=== PATIENT | female | born 1960 | race Caucasian/White ===

== ENCOUNTER 2021-05-31 15:39 | Outpatient (REF) | payer BC, SELFPAY ==
[2021-06-01 19:57] LABS: Immunoglobulin A 137 mg/dL (47-310)
[2021-06-03 07:01] LABS: Transglutaminase Ab IgG <1.0 U/mL; Transglutaminase IgA <1.0 U/mL
[2021-06-03 14:27] LABS: Gliadin Deamidated IgA Ab <1.0 U/mL; Gliadin Deamidated IgG Ab <1.0 U/mL
[2021-06-04 14:46] LABS: Endomysial IgA Antibody Negative (Negative)
== END 2021-05-31 15:40 | disposition home or self-care (01) ==
LOC: HO.LAB 15:39
PROVIDERS: Absent Provider Family Medicine; PCP Family Medicine; Visit Provider Internal Medicine
DX: R14.3 Flatulence (principal)
CPT/HCPCS: 36415; 82784; 86231; 86258; 86364

== ENCOUNTER 2021-07-10 08:44 | Day surgery (SDC) | payer BC, SELFPAY ==
[2021-07-05 09:31] VITALS: BMI 24.7
[2021-07-10 10:06] VITALS: BMI 23.8
[2021-07-10 10:17] VITALS: BP 146/81; PULSE 66; RESP 16; TEMP 36.3; O2SAT 99
[2021-07-10] MEDS: Lactated Ringers 1,000 ML 50 ML IVCONT (10:22)
--- NOTE | 2021-07-10 10:22 | HO.ANESPROP2 ---
HPI - Anesthesia Eval Consult details Narrative: Screening Colonoscopy REPLACED BY [facility] Past Medical History Medical History (Updated 07/05/21 @ 09:12 by Luz Maria Marte, RN) History of basal cell cancer History of hypothyroidism HX: breast cancer Family History Family history of problems with anesthesia: No Surgical History Surgical History (Updated 07/05/21 @ 09:12 by Luz Maria Marte, ALEXANDRA) Hx of bilateral oophorectomy Hx of colonoscopy Status post Mohs surgery for basal cell carcinoma History of Problems with Anesthesia: No Social History Social History Patient Tobacco Use Status: Never used Tobacco Use of substances other than those prescribed or required for medical reasons: No Are you DNR?: No Advance Directives: No Advance Directives Information Provided: Yes Meds Allergies Allergy/AdvReac Type Severity Reaction Status Date / Time diphenhydramine Allergy Unknown Verified 07/10/21 09:16 [From Benadryl] sulfamethoxazole Allergy Unknown Verified 07/10/21 09:16 [From Bactrim] trimethoprim [From Bactrim] Allergy Unknown Verified 07/10/21 09:16 Active Medications: Current Medications Lactated Ringer's (Lr) 1,000 mls @ 50 mls/hr IVCONT .Q20H JUAN M Sodium Biphosphate/Sodium Phosphate (Sodium Phosphate,[place]-Dibasic 133 Ml Enema) 133 ml MA ONCE PRN PRN Reason: Poor Bowel Movement Home Medications Medication Instructions Recorded Confirmed Last Taken Type dupilumab 300 mg/2 mL subcutaneous mg SUBCUT 07/05/21 Unknown History syringe (Dupixent) estradiol (Estring) 1 ring VAGINAL [id number] 07/05/21 07/05/21 Unknown History levothyroxine 75 mcg tablet 1 tab PO DAILY 07/05/21 07/05/21 Unknown History linezolid 600 mg tablet 1 tab PO DAILY 07/05/21 07/05/21 Unknown History liothyronine 5 mcg tablet 1 tab PO DAILY 07/05/21 07/05/21 Unknown History Exam Exam Date and Time: July 10, 2021 1022 Height,Weight and Vital Signs: Height 5 ft 2 in Weight 58.967 kg Last Vital Signs Temp 97.3 F 07/10/21 10:17 Pulse 66 07/10/21 10:17 Resp 16 07/10/21 10:17 BP 146/81 H 07/10/21 10:17 Pulse Ox 99 07/10/21 10:17 Airway Mallampati Class: II TM Dist: >3cm Neck ROM: Full Loose/Missing/Broken Teeth: No Heart: rrr+[id number] Lungs: cta b/l Assessment and Plan Assessment Anesthesia Assessment: Anesthesia Plan Discussed and Chart Reviewed Final Anesthetic Review Family History of Problems with Anesthesia: No History of Problems with Anesthesia: No NPO: Yes ASA Class: II Final Preanesthetic Review: No Changes in Pt Med Stat, Meds/Allgs Chart Reviewed, Consent Obtained/Reviewed and Anes Risks/Benef Reviewed Patient Risk: Intermediate Procedure Risk: Low Assessment/Block/Sedation in SS: Assess/Block/Sedation-SS Anesthetic Plan Anesthetic Plan: MAC: and Agree w/ Assess. and Plan Disposition: Standard PACU
[2021-07-10 11:30] VITALS: BP 158/87; PULSE 102; RESP 18; TEMP 36.1; O2SAT 100
--- NOTE | 2021-07-10 11:35 | PM.OP ---
Brief Operative Note Date of Service: 07/10/21 Pre-op diagnosis: Screening Post-op diagnosis: other (Rectal polyp) Procedure: Colonoscopy to the cecum with hot snare polypectomy and placement of 2 Resolution clips Surgeon: Santino Clayton Anesthesia: MAC Was an [employer] used for this Procedure?: No Estimated blood loss (mL): 2.0 Pathology: other (A. Rectal polyp) Condition: stable Disposition: PACU
--- NOTE | 2021-07-10 11:51 | OP_ITS ---
SURGEON: Santino Clayton MD INDICATIONS: The patient presents for evaluation of colorectal cancer screening. Full consent was obtained from her for this, including risks of bleeding and perforation. PREOPERATIVE DIAGNOSIS: Colorectal cancer screening. POSTOPERATIVE DIAGNOSIS: PROCEDURE PERFORMED: ESTIMATED BLOOD LOSS: COMPLICATIONS: ANESTHESIA: Monitored anesthesia care. ASSISTANTS: SPECIMENS: PROCEDURE: Colonoscopy to the cecum with hot snare polypectomy and placement of 2 resolution clips. POSTOPERATIVE DIAGNOSES: Colorectal cancer screening, rectal polyp, diverticulosis, and small internal hemorrhoids. DESCRIPTION OF PROCEDURE: The patient was placed in the left lateral decubitus position. The digital rectal exam revealed no abnormalities. The Olympus video pediatric colonoscope was entered into the rectum and advanced easily to the cecum. Once in the cecum, I did identify normal-appearing cecal pouch with appendiceal orifice and a normal-appearing ileocecal valve. The entire cecum and ileocecal valve appeared normal. The scope was slowly withdrawn assessing all mucosal surfaces carefully. Preparation throughout the colon for the most part was very good, but there were some areas of liquid stool and there was a fair amount of spasm as well. I did not visualize any sign of colitis or angiodysplasia. The only polyp I visualized was in the rectum. This was approximately 10-12 mm in diameter and slightly raised. It was removed by a hot snare polypectomy and recovered by suction. The polypectomy site did have some persistent oozing, which was finally stopped with cauterizing by the tip of the snare. However, I did place 2 resolution clips on the polypectomy site as well with good deployment and good hemostasis. I did not visualize any other polyps, colitis, or angiodysplasia. There was a mild amount of sigmoid diverticulosis. In the rectum, the scope was also retroflexed visualizing some small internal hemorrhoids, but no other pathology. The rectal mucosa appeared normal. Scope was straightened and withdrawn from the patient. She tolerated the procedure well and was returned to the recovery area in stable condition. IMPRESSION: 1. Rectal polyp. 2. Diverticulosis. 3. Internal hemorrhoids. PLAN: The results of the pathology will be checked. Even if it is not a tubular adenoma, I would recommend a repeat colonoscopy in 5 years given the somewhat limited prep and a lot of colonic spasm. She was advised not to use any aspirin and NSAIDs for 1 week. She will otherwise see me on a p.r.n. basis. MD RIYA Mcfadden/JENY / [id number]
[2021-07-10 11:55] VITALS: BP 149/91; PULSE 100; RESP 18; TEMP 36.2; O2SAT 100
== END 2021-07-10 13:31 | disposition home or self-care (01) ==
PROVIDERS: PCP Family Medicine; Visit Provider Internal Medicine
PROC: 0DJD8ZZ Inspection of Lower Intestinal Tract, Via Natural or Artificial Opening Endoscopic (ICD-10-PCS; CPT 45378; principal; 2021-07-10 10:10)
DX: Z12.11 Encounter for screening for malignant neoplasm of colon (principal); K62.1 Rectal polyp; K57.30 Diverticulosis of large intestine without perforation or abscess without bleeding; K64.8 Other hemorrhoids; R14.3 Flatulence; E03.9 Hypothyroidism, unspecified; L30.9 Dermatitis, unspecified; Z85.828 Personal history of other malignant neoplasm of skin; Z92.3 Personal history of irradiation; Z92.21 Personal history of antineoplastic chemotherapy
CPT/HCPCS: 45385; 88305; J2250

== ENCOUNTER 2024-12-20 06:00 | Emergency (ER) | payer BC, SELFPAY ==
[2024-12-20 06:20] VITALS: BP 127/78; PULSE 76; RESP 18; TEMP 36.6; O2SAT 98; BMI 23.6
--- OUTSIDE RECORDS SUMMARY | 2024-12-20 07:32 | XMS_ITS | Patient Health Record ---
Author Organization [facility] Prac reynaldo Address [address] [place] [address] Care Team Providers Care Associate Chemist Name Role Phone Richard Sammie Primary Care Provider Pamela Laurent Unavailable [phone] Shana Guajardo Unavailable [phone] Jorje Patel Unavailable [phone] Srinivas Mckeon Unavailable [phone] Allergies Allergen (clinical drug ingredient) Drug/Non Drug Allergy documented on EMR Reaction Allergy Type Onset Date Status sulfamethoxazole / trimethoprim Bactrim DS high fever and skin reaction--ID specialist says o Drug Allergy Active diphenhydramine Benadryl Allergy IV benedryl caused reaction (tablets fine) Drug Allergy Active Results Component Value Reference Range Flag Notes Rapid Strep Reviewed date:07/02/2024 04:41:06 PM Interpretation:Negative Performing Lab: Notes/Report: Negative Streptococcus Group A Cultur e ([id number] NOHO) Reviewed date:07/07/2024 04:41:54 PM Interpretation: Performing Lab:NL2, [facility] [address] Elizabeth Goodwin Notes/Report: Received Date: [id number] NON-FASTING FASTING:UNKNOWN FASTING: UNKNOWN STREPTOCOCCUS, GROUP A CULTURE SEE NOTE STREPTOCOCCUS, GROUP A CULTURE Micro Number: [id number] Test Status: Final Specimen Source: Throat Specimen Quality: Adequate Result: No group A Streptococcus isolated rapid Flu Reviewed date:07/02/2024 04:40:02 PM Interpretation:Negative Performing Lab: Notes/Report: Negative Rapid Covid 19 Reviewed date:07/02/2024 04:40:44 PM Interpretation:Negative Performing Lab: Notes/Report: Negative COVID-19, RSV, FLU A/B PCR ( [address] [facility]) Reviewed date:07/07/2024 04:41:44 PM Interpretation: Performing Lab:NL2, [facility] [address] Elizabeth Goodwin Notes/Report: Received Date: [id number] NON-FASTING FASTING:UNKNOWN FASTING: UNKNOWN INFLUENZA A RNA NOT DETECTED NOT DETECTED N INFLUENZA B RNA NOT DETECTED NOT DETECTED N RSV RNA NOT DETECTED NOT DETECTED N SARS COV2 RNA NOT DETECTED NOT DETECTED N A Not Detected (negative) test result for this test means that RNA from SARS-CoV-2, influenza A, influenza B and RSV was not present in the specimen above the limit of detection. However, it does not rule out the possibility of infection from SARS-CoV-2, influenza A, influenza B and/or RSV. Laboratory test results should always be considered in the context of clinical observations and epidemiological data in making a final diagnosis and patient management decisions. 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 Lipid Panel-[id number] Reviewed date:05/20/2024 08:40:45 PM Interpretation: Performing Lab:[facility], [address] [place] [address], Phone - [phone], Director - Faheem Notes/Report: Cholesterol, Total 194 100-199 mg/dL Triglycerides 146 0-149 mg/dL HDL Cholesterol 59 >39 mg/dL VLDL Cholesterol Chencho 26 5-40 mg/dL LDL Chol Calc (NIH) 109 0-99 mg/dL H TSH-[id number] Reviewed date:05/20/2024 08:40:42 PM Interpretation: Performing Lab:[facility], [address] [place] [address], Phone - [phone], Director Salima Mayen Notes/Report: TSH 2.860 0.450-4.500 uIU/mL C-Reactive Protein, Quant-00 6627 Reviewed date:05/20/2024 08:40:37 PM Interpretation: Performing Lab:[facility], [address] [place] [address], [place], Phone - [phone], Director - Faheem Notes/Report: C-Reactive Protein, Quant 2 0-10 mg/L Comprehensive Metabolic Pane l ([id number], [facility]) Reviewed date:05/20/2024 08:40:48 PM Interpretation: Performing Lab:[facility], [address], [place], Phone - [phone], Director - Faheem Notes/Report: Glucose 91 70-99 mg/dL BUN 21 8-27 mg/dL Creatinine 0.84 0.57-1.00 mg/dL eGFR 78 >59 mL/min/1.73 BUN/Creatinine Ratio 25 12-28 Sodium 135 134-144 mmol/L Potassium 4.3 3.5-5.2 mmol/L Chloride 99 96-106 mmol/L Carbon Dioxide, Total 21 20-29 mmol/L Calcium 9.8 8.7-10.3 mg/dL Protein, Total 6.7 6.0-8.5 g/dL Albumin 4.4 3.9-4.9 g/dL Globulin, Total 2.3 1.5-4.5 g/dL Bilirubin, Total 0.5 0.0-1.2 mg/dL Alkaline Phosphatase 77 44-121 IU/L AST (SGOT) 22 0-40 IU/L ALT (SGPT) 13 0-32 IU/L Chest 2 Views Frontal and La t Reviewed date:07/08/2024 03:57:08 PM Interpretation: Performing Lab: Notes/Report: Chest 2 Views Frontal and Lat Reason: cough COMPARISON: None. FINDINGS: LINES AND TUBES: None. LUNGS AND PLEURA: Clear lungs. Normal pulmonary vascularity. No pleural effusion. No pneumothorax. HEART, MEDIASTINUM AND YEHUDA: Heart is normal in size. Normal mediastinal and hilar contour. BONES AND SOFT TISSUES: No acute abnormality. Multiple surgical clips are noted in the left axilla. IMPRESSION: No acute cardiopulmonary disease is seen. WSN: [id number] Ordering Physician: Pamela Kelly Dictated By: Daria PARSONS, David Arrieta Dexa Bone Density (Axial) Reviewed date:07/28/2024 09:03:47 PM Interpretation: Performing Lab: Notes/Report: Name:BRAIN JORDAN Age:63 years Sex:Female Ethnicity:White Date of :1960 Reason: Postmenopausal Referring Provider:Sammie Ramos Study:Dexa Bone Density (Axial) Bone Density: Region BMD T-Score Z-Score Classification AP Spine 0.979 -0.6 1.1 Normal TOTAL HIP 0.952 0.1 1.2 Normal FEM NECK 0.746 -0.9 0.5 Normal 10-year Fracture Risk: Fracture Risk Not Reported: FRAX not reported because: All T-scores for Spine Total, Hip Total, Femoral Neck at or above -1.0 Impression: The patient has normal bone density as determined by WHO criteria. A repeat bone density assessment should be considered in two years. WSN: [id number] Ordering Physician: Sammie Ramos Dictated By: Terra Dinh MD, Xander Welch Hemoglobin [id number] (Use T his One) Reviewed date:12/01/2024 09:20:39 AM Interpretation: Performing Lab:[facility] [place], [address] [place] [address], Phone - [phone], Director - Faheem Notes/Report: Hemoglobin A1c 5.7 4.8-5.6 % H . Prediabetes: 5.7 - 6.4 Diabetes: >6.4 Glycemic control for adults with diabetes: <7.0 TSH-[id number] Reviewed date:12/01/2024 09:20:34 AM Interpretation: Performing Lab:[facility] [place], [address] [place] [address], [place], Phone - [phone], Director - Apoloniay Notes/Report: TSH 1.820 0.450-4.500 uIU/mL Vitamin D, [id number] Reviewed date:12/01/2024 09:20:31 AM Interpretation: Performing Lab:[facility] [place], [address] [place] [address], [place], Phone - [phone], Director - MDChristinedry Notes/Report: Vitamin D, 25-Hydroxy 53.0 30.0-100.0 ng/mL Vitamin D deficiency has been defined by the [place] of [employer] and an Endocrine Society practice guideline as a level of serum 25-OH vitamin D less than 20 ng/mL (1,2). The Endocrine Society went on to further define vitamin D insufficiency as a level between 21 and 29 ng/mL (2). 1. IOM ([place] of Medicine). 2010. Dietary reference intakes for calcium and D. [place]: The National Academies Press. 2. Nancy MF, Leeanne NC, Joann VERA, et al. Evaluation, treatment, and prevention of vitamin D deficiency: an Endocrine Society clinical practice guideline. JCEM. 2010; 96():1911-30. C-Reactive Protein, Cardiac- [id number] Reviewed date:12/01/2024 09:20:26 AM Interpretation: Performing Lab:[facility], [facility], Phone - [phone], Director - MDRicardo Notes/Report: C-Reactive Protein, Cardiac 1.71 0.00-3.00 mg/L Relative Risk for Future Cardiovascular Event Low <1.00 Average 1.00 - 3.00 High >3.00 Comprehensive Metabolic Pane l ([id number], [place]) Reviewed date:12/01/2024 11:53:50 AM Interpretation: Performing Lab:[facility], [facility], [place], Phone - [phone], Director - Faheem Notes/Report: Glucose 88 70-99 mg/dL BUN 30 8-27 mg/dL H Creatinine 0.93 0.57-1.00 mg/dL eGFR 69 >59 mL/min/1.73 BUN/Creatinine Ratio 32 12-28 H Sodium 138 134-144 mmol/L Potassium 4.7 3.5-5.2 mmol/L Chloride 99 96-106 mmol/L Carbon Dioxide, Total 20 20-29 mmol/L Calcium 10.4 8.7-10.3 mg/dL H Verified by repeat analysis Protein, Total 6.7 6.0-8.5 g/dL Albumin 4.7 3.9-4.9 g/dL Globulin, Total 2.0 1.5-4.5 g/dL Bilirubin, Total 0.6 0.0-1.2 mg/dL Alkaline Phosphatase 72 44-121 IU/L AST (SGOT) 18 0-40 IU/L ALT (SGPT) 13 0-32 IU/L Lipid Panel-[id number] Reviewed date:12/01/2024 11:53:43 AM Interpretation: Performing Lab:[facility], [facility] [place], [place], Phone - [phone], Director - Faheem Notes/Report: Cholesterol, Total 233 100-199 mg/dL H Triglycerides 150 0-149 mg/dL H HDL Cholesterol 56 >39 mg/dL VLDL Cholesterol Chencho 27 5-40 mg/dL LDL Chol Calc (NIH) 150 0-99 mg/dL H Foot Min 3 Views Left Reviewed date:03/03/2024 11:22:59 AM Interpretation: Performing Lab: Notes/Report: Foot Min 3 Views Left, 3 views Reason: M79.672 Pain foot, left COMPARISON: None. FINDINGS: Small bone fragment adjacent to the medial aspect of the first metatarsal head with associated soft tissue swelling. No arthritic changes. No radiopaque foreign body. IMPRESSION: Findings concerning for small capsular avulsion fracture from the first metatarsal head. An actionable message (Isabella) has been communicated via the [employer] system on 03/02/2024 4:14 PM, Message ID [id number]. WSN: [id number] Ordering Physician: Srinivas Mckeon Dictated By: Wang Schafer MD Reason For Referral Reason For eye appointments with Maddison Reynaga, Diagnosis 1 Age-related nuclear cataract, bilateral (H25.13) Referral Organization [facility] Kalia actchandler Referring Provider First Name Sammie Referring Provider Last Name Sierraville Referring Provider [facility] ctice Referred Provider Manuel Connelly Edildiana ield Referred Provider Specialty Ophthalmolog y General Notes Kendy Dowling 11/03 09:28:34 AM > referral faxed to: [phone], Authorization Status: CompleteReason: Decisioned, Decision: ApprovedReference#: [id number], Procedure Status: [id number]:Approved Clinical Notes Provider Name: Lida Connelly Tory, Provider , Provider Speciality: Ophthalmology, Address1: [address] [place] [address], Zip: [place], [address], ext. [phone], Referral Priority Routine Reason Appointment is for M acular Degeneration in both eyes with Dr. 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 Jamel Sanchez , I have an appointment on August 28 at 11:00., Dr. Jamel Sanchez, [facility], [address] [place] [address], , Appointment is for Macular Degeneration in both eyes., Kendy Dowling 07/29/2024 10:31:06 AM > referral faxed to: [phone], Authorization Status: CompleteReason: Decisioned, Decision: ApprovedReference#: [id number], Procedure Status: [id number]:Approved, Kendy Dowling 08/20/2024 09:43:33 AM >referral refaxed to: [phone] Clinical Notes Provider Name: [facility], Provider Speciality: Ophthalmology, Address1: [address] [place] [address], Zip: [place], [address], , Referral Priority Routine Reason Full Skin Exam, Zulay re Eczema Follow-up from skin cancer Follow up for medication I am on - Dupixent Diagnosis 1 Encounter for screen ing for malignant neoplasm of skin (Z12.83) Diagnosis 2 Eczema NOS (L25.9) Referral Organization [facility] Kalia actice Referring Provider First Name Sammie Referring Provider Last Name Ramos Referring Provider [facility] ctice Referred Provider KAVON MEJIAS Referred Provider Specialty Dermatology General Notes Kendy Dowling 06/06 02:48:17 PM > referral faxed to: [phone], Authorization Status: CompleteReason: Decisioned, Decision: ApprovedReference#: [id number], Procedure Status: [id number]:Approved Clinical Notes Provider Name: KAVON MEJIAS, Provider ID Number: , Provider UPIN: , Provider , Provider Facility: , Provider Speciality: Dermatology, Address1: [address] [place] [address], Address2: [phone], [facility], Zip: [place], [address], , Appt. Date/Time: , Referral Priority Routine Reason Breast cancer Appo intments with Nadja Elizondo NP, Diagnosis 1 Malignant neoplasm o f unspecified site of unspecified female breast (C50.919) Referral Organization [facility] actice Referring Provider First Name Sammie Referring Provider Last Name Ramos Referring Provider Speciality [facility] ctice Referred Provider [facility] Referred Provider Specialty [facility] General Notes Kendy Dowling 06/07 09:46:45 AM > referral faxed to: [phone], Authorization Status: CompleteReason: Decisioned, Decision: ApprovedReference#: [id number], Procedure Status: [id number]:Approved Clinical Notes Provider Name: [facility], Provider ID Number: , Provider UPIN: , Provider NPI: , Provider Facility: , Provider Speciality: [facility], Address1: [address] [place] [address], Address2: , [facility], Zip: [place], [address], , Appt. Date/Time: , Referral Priority Routine Medications Medication SIG (Take, Route, Frequency, Duration) Notes Start Date End Date Status Lutein 20 MG Capsule 1 cap(s) orally onc e a day; Duration: 30 day(s) Active PRIMROSE OIL CAPSULE 1 ORALLY ONCE A DAY Active Multi Vitamin - Tablet 1 tab(s) orally once a day; Duration: 30 day(s) Innate women over 40 Active Desonide 0.05 % Ointment 1 aguilar applied topically prn PRN Active Vitamin C 1000 MG Tablet 1 tab(s) orally BID Active Fluocinonide 0.05 % Ointment 1 aguilar applied topically prn PRN Active Zyvox 600 MG Tablet 1 tab(s) orally ever y 12 hours; Duration: 14 days PRN bad flare 10/21/2017 Active Triamcinolone Acetonide 0.1 % Cream APPLY TO AFFECTED AREA TID FOR 30 DAYS PRN Active [employer] PROOMEGA 2000 1000MG CAPSULE 2 PO WITH FOOD QD Active Liothyronine Sodium 5 MCG Tablet 1 tablet Orally Once a day; Duration: 90 days Active Vitamin D 2000 IU 2 TABS PO ONCE A DAY Active Levothyroxine Sodium 75 MCG Tablet 1 tablet orally once a day; Duration: 90 days Active Magnesium TABLET 1 PO QD Magnesium Kaylah te and L-Threonate *Please review and pick correct strength-formulat ion from Job[employer] options. If intended option is not shown, discontinue and re-order from Quick Search* 05/19/2019 Active HOMOCYSTEINE SUPREME 1 CAPSULE QD 03/04/2018 Active Calcium 2 PO QD 1200mg Active PreserVision AREDS 2 - Capsule 1 cap(s) orally BID Active Claritin 10 MG Tablet 1 tab(s) orally once a day Active Glucosamine Sulfate 1000 MG Capsule 2 1500 mg a day po QD Act peggy AeroChamber Holding Chamber - Device as directed; Duration: 60 days pls include adult mouthpiece 07/08/2024 Active Chlorhexidine Gluconate 4 % Solution 1 aguilar applied topically once per week 12/20/2017 Active Estring 7.5 MCG/24HR Ring 1 ring Vaginal every 3 months; Duration: 90 days Active Co Q-10 100 MG DIRECTED QD Active Dupixent 300 MG/2ML Solution Pen-injector as directed subcutaneously every 2 weeks Active Zaditor 0.025% SOLUTION 1 GTT IN EACH AFFECTED EYE BID; Duration: 30 DAYS prn 09/15/2019 Active DFH FEMGUARD+BALANCE CAPSULE 2 CAPS PO QAM Active Quercetin 500 MG Capsule 2 PO BID 03/22/2020 Active Immunizations Vaccine Route Administration Date Status Comme nts Tdap Adacel,purchased IM Intramuscular 07/06/2008 Administered office purchas ed tdap Tdap Adacel,purchased IM Intramuscular 10/17/2017 Administered Td vaccine, state Unknown 06/15/1999 Administered SHINGRIX PURCHASED IM Intramuscular 02/06/2018 Administere d SHINGRIX PURCHASED SC Subcutaneous 05/09/2018 Administered RSV VACC HISTORY ADULT Unknown 04/26/2023 Administered PREVNAR 20 PURCHASED IM Intramuscular 12/07/2024 Administered Pneumovax vaccine, state Unknown 04/07/2003 Administered MMR PURCHASED SC Subcutaneous 10/27/2018 Administered Fluzone (6mos & up), purchased IM Intramuscular 01/07/2008 Administered Fluvirin Vaccine; History Unknown 01/22/2024 Administered FLUBLOK PURCHASED IM Intramuscular 02/06/2018 Administered FLUBLOK PURCHASED IM Intramuscular 01/29/2019 Administered FLUBLOK PURCHASED IM Intramuscular 01/23/2020 Administered Flu Vaccine; History Unknown 02/04/2010 Administered pt states she recieved the flu vaccine at work in February at [employer] [facility] [employer] Flu Vaccine; History Unknown 02/09/2011 Administered Flu Vaccine; History Unknown 05/14/2011 Administered Flu Vaccine; History Unknown 01/21/2013 Administered Flu Vaccine; History IM Intramuscular 02/18/2014 Administered Flu Vaccine; History Unknown 02/05/2017 Administered Flu Vaccine; History Unknown 01/22/2023 Administered COVID-19 Vaccine, Moderna, State Supplied IM Intramuscular 06/10/2020 Administered COVID-19 Vaccine (Moderna), History Unknown 07/07/2020 Administered Lot # [id number] COVID-19 Vaccine (Moderna), History Unknown 02/14/2021 Administered COVID-19 Vaccine (Moderna), History Unknown 07/17/2021 Administered COVID Vacc BIVALENT 12+ Pfizer IM Intramuscular 11/28/2022 Administered COVID VACC 19+ PFIZER PURCHASED IM Intramuscular 05/27/2023 Administered Covid Vac Bivalent Moderna,History Unknown 01/25/2022 Administered COVID HISTORY VACC 12+ PFIZER COMIRNATY Unknown 01/22/2024 Administered Social History Social History Additional Details Category Social Info Options Details Social History 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 nikki lives above her 4 grandkids gm lives in [place] and dormitory keeper Pets: None Judaism: Baptism, practi cing(yes [facility]) lives in [place] in 2 family, her daughter Nikki and 4 kids live above her Ed: JESSICA! Section Notes: fun-traveling, reading, HCP mother --curt xu [phone] fun--traveling and grandson fun-traveling, reading, HCP mother --curt xu [phone] fun--traveling and grandson fun-traveling, reading,grand children fun-traveling, reading,grand children fun-traveling, reading,grand children fun-traveling, reading, fun-traveling, reading,grand children fun-traveling, reading, fun-traveling, reading, fun-traveling, reading, HCP mother --curt jordan [phone] fun--traveling and grandson caring for her elderly parents now fun-traveling, reading,grand children fun-traveling, reading,grand children fun-traveling, reading, HCP mother --curt jordan [phone] fun--traveling and grandson caring for her elderly parents now fun-traveling, reading,grand children fun-traveling, reading, HCP mother --curt jordan [phone] fun--traveling and grandson caring for her elderly parents now fun-traveling, reading, HCP mother --curt jordan [phone] fun--traveling and grandson caring for her elderly parents now fun-traveling, reading, HCP mother --curt jordan [phone] fun--traveling and grandson fun-traveling, reading, HCP mother --curt jordan [phone] fun--traveling and grandson caring for her elderly parents now fun-traveling, reading, HCP mother --curt jordan [phone] fun--traveling and grandson fun-traveling, reading, HCP mother --curt jordan [phone] fun--traveling and grandson caring for her elderly parents now fun-traveling, reading, HCP mother --curt sappe [phone] fun--traveling and grandson fun-traveling, reading, HCP mother --curt jordan [phone]--she spends a lot of time caring for her elderly parents fun-traveling, reading, HCP mother --curt sappe [phone] fun--traveling and grandson fun-traveling, reading, HCP mother --curt sappe [phone] fun--traveling and grandson fun-traveling, reading, HCP mother --curt sappe [phone] fun--traveling and grandson fun-traveling, reading, HCP mother --curt xu [phone] fun--traveling and grandson fun-traveling, reading, HCP mother --curt xu [phone] fun--traveling and grandson fun-traveling, reading, HCP mother --curt xu [phone] fun--traveling and grandson fun-traveling, reading, HCP mother --curt xu [phone] fun--traveling and grandson fun-traveling, reading, HCP mother --curt xu [phone] fun--traveling and grandson fun-traveling, reading, HCP mother --curt xu [phone] fun--traveling and grandson fun-traveling, reading, HCP mother --curt xu [phone] fun--traveling and grandson fun-traveling, reading, HCP mother --curt xu [phone] fun--traveling and grandson caring for her elderly parents now fun-traveling, reading, HCP mother --curt xu [phone] fun--traveling and grandson fun-traveling, reading, HCP mother --curt xu [phone] fun--traveling and grandson fun-traveling, reading, HCP mother --curt xu [phone] fun--traveling and grandson fun-traveling, reading, HCP mother --curt xu [phone] fun--traveling and grandson fun-traveling, reading, HCP mother --curt xu [phone] fun--traveling and grandson fun-traveling, reading, HCP mother --curt xu [phone] fun--traveling and grandson fun-traveling, reading, HCP mother --curt xu [phone] fun--traveling and grandson fun-traveling, reading, HCP mother --curt xu [phone] fun--traveling and grandson fun-traveling, reading, HCP mother --curt xu [phone] fun--traveling and grandson fun-traveling, reading, HCP mother --curt xu [phone] fun--traveling and grandson fun-traveling, reading, HCP mother --curt xu [phone] fun--traveling and grandson fun-traveling, reading, HCP mother --curt xu [phone] fun--traveling and grandson fun-traveling, reading, HCP mother --curt xu [phone] fun--traveling and grandson fun-traveling, reading, HCP mother --curt xu [phone] fun--traveling and grandson fun-traveling, reading, HCP mother --curt xu [phone] fun--traveling and grandson fun-traveling, reading, HCP mother --curt xu [phone] fun--traveling and grandson fun-traveling, reading, HCP mother --curt xu [phone] fun--traveling and grandson fun-traveling, reading, HCP mother --curt xu [phone] fun--traveling and grandson fun-traveling, reading, HCP mother --curt xu [phone] fun--traveling and grandson fun-traveling, reading, HCP mother --curt xu [phone] fun--traveling and grandson fun-traveling, reading, HCP mother --curt xu [phone] fun--traveling and grandson fun-traveling, reading, HCP mother --curt xu [phone] fun--traveling and grandson fun-traveling, reading, HCP mother --curt xu [phone] fun--traveling and grandson fun-traveling, reading, HCP mother --curt xu [phone] fun--traveling and grandson fun-traveling, reading, HCP mother --curt xu [phone] fun--traveling and grandson fun-traveling, reading, HCP mother --curt xu [phone] fun--traveling and grandson fun-traveling, reading, HCP mother --curt xu [phone] fun--traveling and grandson fun-traveling, reading, HCP mother --curt xu [phone] fun--traveling and grandson fun-traveling, reading, HCP mother --curt xu [phone] fun--traveling and grandson fun-traveling, reading, HCP mother --curt xu [phone] fun--traveling and grandson fun-traveling, reading, HCP mother --curt xu [phone] fun--traveling and grandson fun-traveling, reading, HCP mother --curt xu [phone] fun--traveling and grandson fun-traveling, reading, HCP mother --curt xu [phone] fun--traveling and grandson fun-traveling, reading, HCP mother --curt xu [phone] fun--traveling and grandson fun-traveling, reading, HCP mother --curt xu [phone] fun--traveling and grandson fun-traveling, reading, HCP mother --curt xu [phone] fun--traveling and grandson fun-traveling, reading, HCP mother --curt xu [phone] fun--traveling and grandson fun-traveling, reading, HCP mother --curt xu [phone] fun--traveling and grandson fun-traveling, reading, HCP mother --curt xu [phone] fun--traveling and grandson fun-traveling, reading, HCP mother --curt xu [phone] fun--traveling and grandson fun-traveling, reading, 2 kids---ayla and gm Pulliam HCP mother --curt xu [phone] fun--traveling and grandson fun-traveling, reading, 2 kids---ayla and gm [place] HCP mother --curt xu [phone] fun--traveling and grandson fun-traveling, reading, HCP mother --curt xu [phone] fun--traveling and grandson fun-traveling, reading, 2 kids---ayla and gm Pulliam HCP mother --curt xu [phone] fun--traveling and grandson fun-traveling, reading, 2 kids---ayla and gm [place] HCP mother --curt xu [phone] fun--traveling and grandson fun-traveling, reading, 2 kids---ayla and gm Kirkland[place] HCP mother --curt xu [phone] fun--traveling and grandson fun-traveling, reading, 2 kids---ayla and gm Kirklandy HCP mother --curt xu [phone] fun--traveling and grandson fun-traveling, reading, 2 kids---ayla and gm Kirklandy [facility] mother --curt xu [phone] fun--traveling and grandson dating Lavell 2 kids---ayla and gm Kirklandy [facility] mother --curt xu [phone] fun--traveling and grandson dating Lavell now, from [place] 2 kids---ayla and gm Kirklandy [facility] mother --curt xu [phone] dating Lavell now, from [place] 2 kids---ayla and gm Kirklandy [facility] mother --curt xu [phone] dating Lavell now, from [place] 2 kids---ayla and gm [place] [facility] mother --curt xu [phone] dating Lavell now, from [place] 2 kids---ayla and gm [place] [facility] mother --curt xu [phone] dating Lavell now, from [place] 2 kids---ayla and gm [place] [facility] mother --curt xu [phone] fun-traveling, reading, 2 kids---ayla and gm [place] [facility] mother --curt ux [phone] fun--traveling and grandson fun-traveling, reading, 2 kids---ayla and gm [place] [facility] mother --curt xu [phone] fun--traveling and grandson dating Lavell for 3.5 years now, from [place] 2 kids---ayla and mg Pulliam [facility] mother --curt xu [phone] dating Lavell for 3.5 years now, from [place] 2 kids---ayla and gm Pull[place] [facility] mother --curt xu [phone] dating Lavell for 3.5 years now, from [place] 2 kids---ayla and gm Pulliam [facility] mother --curt xu [phone] dating Lavell for 3.5 years now, from [place] 2 kids---ayla and gm Pull[place] [facility] mother --curt xu [phone] dating Lavell now, from [place] 2 kids---ayla and gm Pull[place] [facility] mother --curt xu [phone] dating Lavell now, from [place] 2 kids---ayla and gm Pull[place] [facility] mother --curt xu [phone] dating Lavell now, from [place] 2 kids---ayla and gm [place] [facility] mother --curt xu [phone] dating Lavell now, from [place] 2 kids---ayla and gm Pulliam [facility] mother --curt xu [phone] dating Lavell now, from [place] 2 kids---ayla and gm Pulliam [facility] mother --curt xu [phone] dating Lavell now, from [place] 2 kids---ayla and gm [place] [facility] mother --curt xu [phone] dating Lavell now, from [place] 2 kids---ayla and gm [place] [facility] mother --curt xu [phone] dating Lavell now, from [place] 2 kids---ayla and gm Kirkland[place] [facility] mother --curt xu [phone] dating Lavell now, from [place] 2 kids---ayla and gm Pulliam HCP mother --curt jordan [phone] fun-traveling, reading,grand children Problems Problem Type SNOMED Code ICD Code Onset Dates Problem Status W/U Status Risk Notes Problem Eczema (03327760) Eczema NOS (L25.9) Active con firmed Problem Pure hypercholesterolemia (125996812) Hypercholesterolem ia, pure (E78.00) Active confirmed Problem Bacterial enteritis (77375766) Bacterial intestinal infection, unspecified (A04.9) Active confirmed Problem Methicillin resistant Staphylococcus aureus infection (869437635) Methicillin resistant Staphylococcus aureus infection, unspecified site (A49.02) Active confirmed Problem Nuclear senile cataract (650723864) Age-related nuclear cataract, bilateral (H25.13) Active confirmed Problem Degenerative disorder of macula (835326648) Macular degeneration, unspecified (H35.30) Active confirmed Problem Cystoid macular retinal degeneration (36655276) Cystoid macular degeneration, 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) Active confirmed Problem Retinal drusen (252618563) Drusen (degenerative) of macula, bilateral (H35.363) Active confirmed Problem Cutaneous autosensitization (7760185) Cutaneous autosensitization (L30.2) Active confirmed Problem Menopause (835071263) Menopausal and female climacteric states (N95.1) Active confirmed Problem C-reactive protein abnormal (491457497) Elevated C-reactive protein (CRP) (R79.82) Active confirmed Problem Personal history of primary malignant neoplasm of breast (823706562) Personal history of malignant neoplasm of breast (Z85.3) 2002 Active confirmed Lumpectomy , chemo, radiation Problem Retinal disorder (40395866) Unspecified retinal disorder (H35.9) Active confirmed Problem Hypothyroidism (72584382) Hypothyroidism, unspecified (E03.9) Active confirmed Problem Hypercholesterolemia (86496193) Hypercholesterolem ia (E78.00) Active confirmed Problem Chronic sinusitis (11378617) Sinusitis chronic (J32.9) Active confirmed Problem Malignant neoplasm of female breast (771163931) Malignant neoplasm of unspecified site of unspecified female breast (C50.919) Active confirmed Problem Pure hyperglyceridemia (667400891) Pure hyperglyceridemia (E78.1) Active confirmed Problem Nonexudative age-related macular degeneration (333106369) Nonexudative age-related macular degeneration, bilateral, 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) Active confirmed Problem 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 [address] [address] 06/01/2024 Sammie Ramos Hypothyroidism, unspecified E03.9 ; Hypercholesterolemia, pure E78.00 ; Osteopenia NOS M85.80 ; Sinusitis chronic J32.9 ; Rash NOS R21 ; Malignant neoplasm of unspecified site of unspecified female breast C50.919 and Pure hyperglyceridemia E78.[address] [address] 07/02/2024 Jorje Patel Acute cough R05.1 ; Influenza A J09.X9 and Sore throat J02.[address] [address] 07/06/2024 Sammie Ramos Conjunctivitis (unspecified) H10.9 ; Cough, unspecified R05.9 ; Pneumonia NOS J18.9 and Wheezing R06.[address] [address] 07/08/2024 Pamela Laurent Cough, unspecified R05.9 and Wheezing R06.[address] [address] 07/13/2024 Pamela Laurent Cough, unspecified R05.9 and Wheezing R06.[address] [address] 12/07/2024 Sammie Ramos Adult physical NORMAL Z00.00 ; Encounter for immunization Z23 ; Hypercholesterolemia, pure E78.00 ; Unspecified retinal disorder H35.9 ; Hyperglycemia, unspecified R73.9 and Eczema NOS L25.9 [place] [address] [place] [address] 12/14/2024 Sammie Ramos [place] [address] [place] [address] 01/21/2024 Shana Guajardo [place] [address] [place] [address] 06/01/2024 Sammie Ramos Osteopenia NOS M85.80 and Menopausal and female climacteric states N95.1 [place] [address] [place] [address] 06/03/2024 Sammie Ramos [place] [address] [place] [address] 06/22/2024 Sammie Ramos [place] [address] [place] [address] 06/26/2024 Sammie Ramos [place] [address] [place] [address] 07/15/2024 Pamela Laurent Wheezing R06.2 [place] [address] [place] [address] 07/22/2024 Sammie Ramos [place] [address] [place] [address] 08/14/2024 Sammie Ramos [place] [address] [place] [address] 11/12/2024 Sammie Ramos [place] [address] [place] [address] 11/16/2024 Sammie Ramos [place] [address] [place] [address] 01/22/2024 Sammie Ramos [facility] [address] [place] [address] 07/09/2024 Pamela Laurent [facility] [address] [place] [address] 07/15/2024 Pamela Ramos [facility] [address] [place] [address] 07/19/2024 Sammie Ramos [address] [address] 12/14/2024 Sammie Ramos Assessments Encounter Date Diagnosis (ICD Code) Assessment Notes Treatment Notes Treatment Clinical Notes Section Notes 07/02/2024 Acute cough (ICD-10 - R05.1) Cough is keeping her up at night and making it hard to rest. Lungs clear, O2 sat ok, no tachypnea or tachycardia. Discussed guaitussin AC vs benzonatate. Would like to try the guiatussin AC, discussed proper use, side effects, risks of this medication including drowsiness and additction potential. Use sparingly 07/08/2024 Wheezing (ICD-10 - R06.2) 07/08/2024 Cough, unspecified (ICD-10 - R05.9) 07/02/2024 Influenza A (ICD-10 - J09.X9) strongly suspect influenza given high local rates, symptoms, and onset shortly after a known flu exposure. Rapid flu negative. Discussed tamiflu should be started within 48 hours of symptoms for efficiacy. Patient not feeling well and would like to still try the medication, aware may not be effective at this point. Discussed proper use and side effects. Discussed ED precautions and expected timeline for improvement 07/13/2024 Cough, unspecified (ICD-10 - R05.9) 06/01/2024 Menopausal and female climacteric states (ICD-10 - N95.1) 06/01/2024 Osteopenia NOS (ICD-10 - M85.80) 07/15/2024 Wheezing (ICD-10 - R06.2) 12/07/2024 Adult physical NORMAL (ICD-10 - Z00.00) 07/06/2024 Conjunctivitis (unspecified) (ICD-10 - H10.9) Patient instructed on indications for use of new medications, proper administration, and potential side effects. presumptive pneumonia by history and so prevalent currently in our community.. advised to activate EMS if sx worsen or become severe. 07/06/2024 Cough, unspecified (ICD-10 - R05.9) 06/01/2024 Hypercholesterolemia , pure (ICD-10 - E78.00) es 06/01/2024 Hypothyroidism, unspecified (ICD-10 - E03.9) es 03/02/2024 Pain foot, left (ICD-10 - M79.672) -Likely sprain/strain of L 1st great toe vs fracture. Does not appear infectious given HPI and exam. Will order xray and start naproxen as above. -Advised heat/ice, compression, elevation prn. Caution with ambulation or extended periods on feet. -Will f/up in 2-4 wks if lack of improvement. -Pt verbalizes good understanding. UPDATED 03/03 @ 1021: Xray with small capsular avulsion fracture from the first metatarsal head. Called and updated pt. Advised walking boot for 2-4 wks followed by PT. Cont supportive care we discussed in the office. Will plan to f/up in 4 wks, will refer to PT then per pt preference. 07/06/2024 Pneumonia NOS (ICD-10 - J18.9) 06/01/2024 Osteopenia NOS (ICD-10 - M85.80) es 12/07/2024 Encounter for immunization (ICD-10 - Z23) 07/02/2024 Sore throat (ICD-10 - J02.9) see above, discussed supportive measures, need to keep hydrated 07/13/2024 Wheezing (ICD-10 - R06.2) 12/07/2024 Hypercholesterolemia , pure (ICD-10 - E78.00) LDL 150 on recent labs which is the highest recorded. Open to starting statin, but also eager to see what can be done with dietary improvement. Will investigate lipids more thoroughly with [facility] in February and base decision to treat on results at that time. 07/06/2024 Wheezing (ICD-10 - R06.2) 06/01/2024 Sinusitis chronic (ICD-10 - J32.9) at this point i think 3 days of afrin and then switch to flonase. if not better will order abx. es 06/01/2024 Rash NOS (ICD-10 - R21) suggest seeing derm sooner for the lesion on her left lower lip as it is growing. es 12/07/2024 Unspecified retinal disorder (ICD-10 - H35.9) Chronic condition is stable on 2 year follow up schedule. Followed by both Dr. Sanchez in [place] and local ophthamologist. Will request to have notes from these offices forwareded 12/07/2024 Hyperglycemia, unspecified (ICD-10 - R73.9) Hemoglobin a1c 5.7 better at last year at 5.9. Ana is highly motivated to optimize her health through lifestyle. Reviewed importance of varied diet, regualr exerxise, and minimizing sugars/starches . Will recheck as part of [facility] in 12/07/2024 Eczema NOS (ICD-10 - L25.9) History of severe eczema, but currently very well controlled on Dupixent. Discussed asking Dr. Mejias for samples of this medication if it becomes unobtainably expensive upon transition to Medicare insurance 06/01/2024 Malignant neoplasm of unspecified site of unspecified female breast (ICD-10 - C50.919) es 06/01/2024 Pure hyperglyceridemia (ICD-10 - E78.1) es 07/08/2024 Other a week and a half of sxs, no clear fevers. neg swabs (strep, COVID, flu, RSV). feels like intervention thus far not helpful (Augmentin, albuterol, codeine cough med). advised re cont supportive care, lungs are clear but given prolonged picture check xray. if sxs not improving over the next 1-2 days advised to go for labs. instructed re use of new meds, admin and s/e. call for worsening/prn, ED precautions reviewed. f/u early next week, sooner prn. 07/13/2024 Other much better, although not able to get inhaler CS. will cont w tx reg for another 2-3 days, our office will check on ICS coverage. again reviewed supportive care, clear CXR, w all seeming to move in the right direction f/u will be prn. all questions/coretta rns addressed to pt satisfaction. 12/07/2024 Other Health maintenance flow sheet reveiwed and updated Plan Of Treatment Pending Test Test Name Order Date X ray : Chest PA and LAT 07/08/2024 X ray : Chest PA and LAT 09/26/2018 X ray : Chest PA and LAT 02/17/2008 Urine Dip --in house 08/21/2006 Ultrasound : Leg, right 02/07/2015 MRI : Spine, Cervical 03/23/2009 X ray : Foot, left 03/02/2024 Bone density 05/25/2008 Bone density 06/01/2024 Mammogram 11/15/2009 Colonoscopy 04/11/2011 ekg 10/24/2018 ekg 10/24/2018 -PAP, cervical: HPV HYBRID C APTURE HIGH RISK DNA PROBE if diagnosis of ASCUS 12/03/2005 -PAP, cervical: HPV HYBRID C APTURE HIGH RISK DNA PROBE if diagnosis of ASCUS 12/05/2006 Exercise Treadmill Stress Test 9 Exercise Treadmill Stress Test 5 HEMOGLOBIN A1C 06/01/2024 COMPLETE BLOOD COUNT 12/29/2009 COMPLETE BLOOD COUNT 07/12/2009 COMPLETE BLOOD COUNT 02/17/2008 -BLOOD CULTURE 02/17/2008 URINE CULTURE ([address]) 02/17/2008 URINE CULTURE ([address]) 08/21/2006 -LYME AB 02/18/2008 -CANC ANT-125 06/12/2013 -BABESIA AB 02/18/2008 -RAST MOLD PANEL 09/03/2006 -VITAMIN D2, D3 & TOTAL (250H) 4 -RAST LATEX 09/03/2006 -CULTURE, AEROBIC BACTERIA 06/29/2013 -CULTURE, AEROBIC BACTERIA 03/25/2013 -RAST CAT DANDER/HAIR 09/03/2006 -RAST DOG DANDER 09/03/2006 -RAST EGGS 09/03/2006 endometrial biopsy 09/03/2006 -erlichiosis 02/18/2008 -EBV antigen (IGG) 02/19/2008 -EBV antibody (IGM) 02/19/2008 PAP, cervical; HPV Hybrid Capture High R isk DNA Probe any Dx 11/21/2020 PAP, cervical; HPV Hybrid Capture High R isk DNA Probe any Dx 10/17/2017 PAP, cervical; HPV Hybrid Capture High R isk DNA Probe any Dx 03/23/2009 PAP, cervical; HPV Hybrid Capture High R isk DNA Probe any Dx 08/15/2015 PAP, cervical, & GC/Chlamydi a AMP DNA probe from [employer]; HPV Hybrid Capture High Risk DNA Probe ( 08/27/2016 Mammogram, routine annual screening 01/2013 Mammogram, routine annual screening 11/2010 -Culture Staph Screen 03/25/2013 HS-CRP 12/02/2023 HS-CRP 06/01/2024 CBC WITH DIFF 07/08/2024 Thyroid Panel with TSH-7444 08/12/2023 -THYROID PANEL 06/12/2013 -THYROID PANEL 02/11/2008 -TSH 12/29/2009 -LIPID PANEL, FASTING 06/12/2013 -LIPID PANEL, FASTING 04/11/2011 COMPREHENSIVE METABOLIC PANL -17657 04/0 12/2023 COMPREHENSIVE METABOLIC PANL -93865 0 11/2013 COMPREHENSIVE METABOLIC PANL -63267 03/0 09/2024 COMPREHENSIVE METABOLIC PANL -00375 05/07 COMPREHENSIVE METABOLIC PANL -43994 11/04 COMPREHENSIVE METABOLIC PANL -49150 0 08/2024 LIPID PANEL 12/02/2023 LIPID PANEL 06/01/2024 LIPID PANEL 08/12/2023 HSCRP 02/13/2016 HSCRP 11/16/2013 COMPREHENSIVE METABOLIC PANL 02/13/2016 COMPREHENSIVE METABOLIC PANL 05/27/2023 LIPID PANEL 05/27/2023 LIPID PANEL 02/13/2016 LIPID PANEL 11/16/2013 TSH 10/07/2017 Vitamin D25 OH 06/01/2024 Vitamin D25 OH 02/13/2016 METHYLENETETRAHYDROFOLATE REDUCTASE (MTH FR C677T) 02/20/2017 THYROID PANEL 02/13/2016 THYROID PANEL 11/16/2013 Culture and sensitivity 02/19/2014 Culture and sensitivity 10/21/2017 Culture and sensitivity 04/14/2014 Culture and sensitivity 01/04/2017 Culture and sensitivity 12/24/2016 Culture and sensitivity 12/17/2016 Sterile Body Fluid Culture 10/21/2017 Home Sleep Study 02/27/2017 Cardio IQ Panel AFP 12/07/2024 CRP 08/12/2023 CRP 07/08/2024 TSH 12/02/2023 TSH 06/01/2024 Next Appt Details Provider Name:Sammie Kennedy [facility], 06/02/2025 08:30:00 AM, [address] [place] [address], [phone], Provider Name:Sammie Kennedy [facility], 12/08/2025 09:00:00 AM, [address] [place], [address], Insurance Providers Payer Name Payer Address Payer Phone Subscriber Number Group Number Insured Name Patient Relationship to Insured Coverage Start Date Coverage End Date [facility] [address] [place] [address] [id number] BRAIN JORDAN Self - patient is the insured 2020 Medical (General) History Medical History History ICD Code hx of L breast Ca-- Dr. Wiseman si nce 10/11--Graduated! hypothyroidism severe eczema - saw Dr. Mejias 2017 Dr. Ruano hog cutter--allergy shots compl eted Severe recurrent Staph infections (dr Abelardo Macias at [facility]) MTHFR 2016 BCC 2017 Apo E 3/4 macular degeneration, dry, 2020 Surgical History Surgery Date(Month/Year) sp L breast lumpectomy and chemo and rad iation 11/2002 [place] 07/2010 eye lid surgy(L)--ama 09/2013 varicose vein ablation - Dr. Ortega MOHS procedure --Dr Norma Landry (face) 0 01/15/2018 varicose vein ablation 06/01/2021 Hospitalization History Reason Date(Month/Year) [facility] for allergic reaction to Bactrim(hig h fever and skin reaction) 02/19/08
--- OUTSIDE RECORDS SUMMARY | 2024-12-20 07:32 | XMS_ITS | Clinical Summary ---
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 Role Phone Unavailable Primary Care Provider Unavailabl e Immunizations Immunization Administration Dates Next Due Influenza, seasonal, injectable, preservative fr ee 01/22/2024 Pfizer Covid-19 Vaccine 12+ 01/22/2024 Social History Tobacco Use Types Packs/Day Years Used Date Smoking Tobacco: Never Assessed Comments Unknown Sex and Gender Information Value Date Recorded Sex Assigned at Female 01/30/2024 10:30 AM EDT Legal Sex Female 3:54 PM EDT Gender Identity Female 01/30/2024 10:30 AM EDT Sexual Orientation Straight 01/30/2024 10 :30 AM EDT Plan of Treatment Health Maintenance Due Date Last Done Comments CT Colonography 1960 Colonoscopy 1960 Colorectal Cancer Screening 1960 Depression Screening 1960 FIT DNA/Cologuard 1960 FIT 1960 FOBT 1960 HIV Screening 1960 SDOH Screening 1960 Sigmoidoscopy 1960 Disability Screening 1960 Alcohol/Substance Use Screening 1972 Tobacco Screening 1972 Hepatitis C Screening 1978 DTaP/Tdap/Td Vaccines (1 - Tdap) 08/30/1979 Pneumococcal Vaccine: 50+ Years (1 of 2 - PCV) 08/30/1979 Zoster Vaccines (1 of 2) 08/30/1979 Pap Smear 1981 Cervical Cancer Screening 1990 HPV/Cotest 1990 COVID-19 Vaccine (9 - Moderna risk 2023- season) 2024 01/22/2024, 05/27/2023, 11/28/2022, Additional history exists Influenza Vaccine (#1) 2025 4, 01/22/2023, 01/25/2022, Additional history exists RSV Patients and Patients Aged 60 years or older Completed 04/26/2023 HIB Vaccines Aged Out No longer eligi ble based on patient's age to complete this topic HPV Vaccines Aged Out No longer eligi ble based on patient's age to complete this topic Hepatitis A Vaccines Aged Out No long er eligible based on patient's age to complete this topic Hepatitis B Vaccines Aged Out No long er eligible based on patient's age to complete this topic IPV Vaccines Aged Out No longer eligi ble based on patient's age to complete this topic Meningococcal B Vaccine Aged Out No l onger eligible based on patient's age to complete this topic Meningococcal Vaccine Aged Out No traci makenzie eligible based on patient's age to complete this topic RSV under 20 months Aged Out No longe r eligible based on patient's age to complete this topic Rotavirus Vaccines Aged Out No longer eligible based on patient's age to complete this topic [facility]
--- OUTSIDE RECORDS SUMMARY | 2024-12-20 07:32 | XMS_ITS | Clinical Summary ---
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 Role Phone Unavailable Primary Care Provider Unavailabl e Social History Tobacco Use Types Packs/Day Years Used Date Smoking Tobacco: Never Assessed Sex and Gender Information Value Date Recorded Sex Assigned at Not on file Gender Identity Not on file Sexual Orientation Not on file Job Start Date Occupation Industry Not on file Not on file Not on file Plan of Treatment Health Maintenance Due Date Last Done Comments Hepatitis C Screening 1960 COVID-19 Vaccine (#1) 02/28/1961 Depression Screening 1972 Preventative Health Evaluation 1978 DTap / Tdap / Td (1 - Tdap) 08/30/1979 Cervical Cancer Screening (P ap Smear) 1981 Colon Cancer Screening (Colonoscopy) 2005 Breast Cancer Screening (Mammogram) 2010 Shingrix-Zoster Vaccine (1 of 2) 2010 Influenza Vaccine (#1) 2025 Pneumococcal Vaccine (1 of 1 - PCV) 2025 RSV Adult > 60+ Yrs or Pregn ant (1 - 1-dose 75+ series) 08/30/2035 Hepatitis B Vaccines Aged Out No long er eligible based on patient's age to complete this topic Pneumococcal Vaccine Aged Out No long er eligible based on patient's age to complete this topic RSV Ped < 20 months Aged Out No longe r eligible based on patient's age to complete this topic
--- OUTSIDE RECORDS SUMMARY | 2024-12-20 07:32 | XMS_ITS | Patient Health Record ---
Author Organization [facility] Address [address] [place] [address] Care Team Providers Care Svp Group Director Name Role Phone ORALIA FOSTER M.D. Primary Care Provider Santino Kohler Unavailable [phone] Allergies Allergen (clinical drug ingredient) Drug/Non Drug Allergy documented on EMR Reaction Allergy Type Onset Date Status sulfamethoxazole / trimethoprim Bactrim Unknown Drug Allergy Active diphenhydramine benadryl IV (uncoded) Unknown Allergy Active Reason For Referral No Information Medications Medication SIG (Take, Route, Frequency, Duration) Notes Start Date End Date Status Glucosamine Sulfate 1000 MG 1 tablet wit h a meal Orally Once a day for 30 day(s) 05/31/2021 Active Claritin 10 MG 1 tablet Orally Once a day for 30 day(s) 05/31/2021 Active Zaditor 0.025 % 1 drop into affected eye Ophthalmic Twice a day 05/31/2021 Active Levothyroxine Sodium 75 MCG Oral for 90 Active Vitamin D 50 MCG (1999 UT) 1 capsule Ora lly Once a day for 30 day(s) 05/31/2021 Active Liothyronine Sodium 5 MCG Oral for 90 Active Multi Vitamin Daily - 1 tablet Orally On ce a day for 30 day(s) 05/31/2021 Active Dupixent 300 MG/2ML Subcutaneous for 28 Active Homocysteine Formula 800-50-100 MCG-MG-MCG as directed Orally 05/31/2021 Active Co Q 10 100 MG as directed Orally 05/31/2021 Active Estradiol 2 MG 1 tablet Orally Once a day for 30 day(s) 05/31/2021 Active Lutein-Zeaxanthin 15-0.7 MG as directed Orally Active Naltrexone-buPROPion HCl ER 8-90 MG 2 tablets Orally Twice a day for 30 day(s) 05/31/2021 Active PreserVision AREDS 2 - as directed Orally 05/31/19 Active Fluorometholone 0.1 % Ophthalmic for 7 Active Vitamin C Adult Gummies 125 MG as directed Orally 05/31/2021 Active Estring 2 MG Vaginal for 90 Ac tive Calcium + D 500-1000-40 MG-UNT-MCG as directed Orally 05/31/2021 Active Linezolid 600 MG 1 tablet Orally ever y 12 hrs for 10 day(s) 05/31/2021 Active Triamcinolone (oint)-Silicone 05/31/2021 Active Quercetin 50 MG 1 tablet Orally Once a day for 30 day(s) 05/31/2021 Active Immunizations Vaccine Route Administration Date Status Comme nts Influenza Unknown 03/22/2021 Administered Social History Tobacco Use: Social History Observation Description Date Details (start date - stop date) Never Smoker NA - NA Tobacco Use/Smoking Question Answer Notes Patient is a nonsmoker Alcohol Screen Question Answer Notes Did you have a drink containing alcohol in the p ast year? No Points 0 Interpretation Negative Section Notes: Nonsmoker; no sig alcohol Problems Problem Type SNOMED Code ICD Code Onset Dates Problem Status W/U Status Risk Notes Problem 800106953 Encounter for screening for malignant neoplasm of colon (Z12.11) Active confirmed Problem 562343076 Flatulence (R14.3) Active confirmed Problem Diverticulosis of colon (699469119) Diverticulosis of colon (K57.30) Active confirmed Plan Of Treatment Pending Test Test Name Order Date CELIAC PANEL #10 05/31/2021 Future Test Test Name Order Date COLONOSCOPY 05/31/2021 Insurance Providers Payer Name Payer Address Payer Phone Subscriber Number Group Number Insured Name Patient Relationship to Insured Coverage Start Date Coverage End Date [facility] [employer] PROF[employer]AL CLAIMS [address] [place] [address] [id number] [employer]AN Self - patient is the insured Medical (General) History Medical History History ICD Code Breast cancer on the left-lumpectomy, ch emo, and XRT--2002 Skin cancer-Basal cell Eczema Neg. colonoscopy in 06/[address] Schilling rs Denies CA,DM,CVA,Lung disease,renal dise ase Hypothyroidism Surgical History Surgery Date(Month/Year) Lumpectomy left 2002 Both ovaries removed 2013 Skin cancer-[facility] surgery 2018
--- NOTE | 2024-12-20 09:16 | ED_ITS ---
HPI - General Adult General Chief complaint: Eye Problems Stated complaint: right eye swollen / wears contacts Time Seen by Provider: 12/20/24 09:16 Source: patient Mode of arrival: ambulatory Limitations: no limitations History of Present Illness ED Provider: Karen Champagne PA-C HPI narrative: Patient is a 64 year old assigned female at with a history of hard contact use presenting to the emergency department today with right eye pain. Patient states that last night she had a difficult time getting the contact into her right eye and now she is having redness, tearing, and a foreign body sensation in the right eye. Patient denies any other complaints at this time. Patient states that the contact is still in one piece and did not break. Related Data Home Medications ?Medication ?Instructions ?Recorded ?Confirmed dupilumab 300 mg/2 mL subcutaneous mg subcut 07/05/21 syringe (Dupixent) estradiol 2 mg (7.5 mcg/24 hour) 1 ring vaginal Q3MONT HS 07/05/21 07/05/21 vaginal ring (Estring) levothyroxine 75 mcg tablet 1 tab PO DAILY 07/05/21 linezolid 600 mg tablet 1 tab PO DAILY 07/05/210 06/27 liothyronine 5 mcg tablet 1 tab PO DAILY 07/05/210 06/27 Previous Rx's ?Medication ?Instructions ?Recorded ciprofloxacin HCl 0.3 % eye drops 2 drp ophthalmic-Rig ht QD-QID 5 12/20/24 days #5 mL Allergies Allergy/AdvReac Type Severity Reaction Status Date / Time diphenhydramine (From Allergy Rash Verified 12/20/24 06:22 Benadryl) sulfamethoxazole (From Allergy Rash Verified 12/20/24 06:22 Bactrim) trimethoprim (From Bactrim) Allergy Rash Verified 12/20/24 06:22 Review of Systems Constitutional: Constitutional: Reports as per HPI Eyes: Comments: right eye pain, redness, tearing, foreign body sensation ENT: Reports as per HPI Cardiovascular: Cardiovascular: Reports as per HPI Respiratory: Respiratory: Reports as per HPI Gastrointestinal: Gastrointestinal: Reports as per HPI Genitourinary: Genitourinary: Reports as per HPI Musculoskeletal: Musculoskeletal: Reports as per HPI Integumentary/Breasts: Skin/Breast: Reports as per HPI Neurologic: Reports as per HPI Psychiatric: Psychiatric: Reports as per HPI Endocrine: Endocrine: Reports as per HPI Hematologic/Lymphatic: Hematologic/Lymphatic: Reports as per HPI Allergic/Immunologic: Allergic/Immunologic: Reports as per HPI [facility] Past Medical History Attestation statement: The following information was validated with the patient. Source: old records reviewed and nursing notes reviewed Medical History History of hypothyroidism History of basal cell cancer HX: breast cancer Surgical History Hx of bilateral oophorectomy Status post Mohs surgery for basal cell carcinoma Hx of colonoscopy Social History Social History Patient Tobacco Use Status: Never used Tobacco Advance Directives: No Advance Directives Information Provided: No Physical Exam ED Vital Signs: Vital Signs - 24 hr 12/20/24 06:20 Temperature 97.8 F Pulse Rate 76 Respiratory Rate 18 Blood Pressure 127/78 Pulse Oximetry 98 Oxygen Delivery Method Room Air BMI result Body Mass Index 23.6 Const General: cooperative, no acute distress, alert and awake Nutritional Appearance: well nourished Orientation/consciousness: patient oriented x3 HENMT Head: Yes normal to inspection and Yes atraumatic Ears: hearing grossly normal bilaterally and external ears normal General nose exam: Normal external nose present, no nasal discharge noted and no epistaxis Face and sinus: Yes normal facial exam, No abrasion and No laceration Mouth: Normal oral and palatal mucosa present, no drooling and no muffled voice Eyes Other: Patient's right eye was stained with florescence and has a very evidence tear drop shaped central corneal abrasion patient's eye is erythematous with some tearing Pupils: Equal, round and reactive pupils present EOM: EOMs intact bilaterally Neck Neck: Yes normal visual inspection and Yes full ROM Resp Effort & Inspection: normal respiratory effort and able to speak in complete sentences Neuro General: patient oriented x3, moves all extremities and CN's II-XI intact bilaterally Cranial nerves: Yes Equal, round and reactive pupils present Cognition (Neuro): normal cognition Extrem General: Yes normal to inspection, Yes full ROM and Yes capillary refill normal Psych Appearance: grossly normal Mental Status: mental status grossly normal Affect: normal affect Attitude: cooperative Thought process: Normal thought process present Thought content: Normal thought content present Insight: Good insight present (Psych) Medications Administered Discontinued Medications Generic Name Dose Route Start Last Admin Trade Name Pedro PRN Reason Stop Dose Admin Fluorescein Sodium 1 strip 12/20/24 09:17 12/20/24 09:21 Fluorescein Sodium Strip EYE-RIGHT 12/20/24 09:18 1 strip ONCE ONE Administration Tetracaine HCl 1 drop 12/20/24 09:17 12/20/24 09:21 Tetracaine Hcl/Pf 0.5% Oph Francine 4 Ml Drops EYE-RIGHT 12/20/24 09:18 1 drop ONCE ONE Administration Medical Decision Making Medical Decision Making MDM Narrative: Patient is a 64 year old assigned female at with a history of hard contact use presenting to the emergency department today with right eye pain. Patient's physical exam was as noted in the physical exam portion of this note and most consistent with a corneal abrasion. I explained my physical exam findings to the patient. I answered all questions asked by the patient. I stressed the importance of the patient taking her medication as directed (either prescribed or as the over the counter packaging recommends). I stressed the importance of the patient following up with her primary care provider and her aquarium specialist. Patient confirms that she is going to call her aquarium specialist first thing tomorrow morning. I stressed the importance of the patient returning to the emergency department immediately if her symptoms were to worsen or if she were to develop any dizziness, shortness of breath, difficulty breathing, chest pain, blurry vision, loss of vision, nausea, vomiting, abdominal pain, fever, chills, back pain, or any other complaints. Patient verbalized agreement and understanding with this treatment plan and discharge. Differential Diagnosis Differential Diagnoses: The differential diagnosis associated with the presentation includes Right corneal abrasion Right eye pain Admission/Observation Consideration of admission/observation: Escalation of care including admission/observation considered Patient would have been admitted to the hospital had her clinical presentation warranted hospital admission. Prescription Management I considered prescription management with: Antibiotic (patient prescribed an antibiotic drip for her right corneal abrasion) Discharge Plan Discharge Clinical Impression: Corneal abrasion Patient Disposition: Home, Self-Care Instructions: Corneal Abrasion (DC) Additional Instructions: Your right eye exam showed evidence of a corneal abrasion. It is CRUCIAL you use the eye drop antibiotic as prescribed and you do NOT WEAR YOUR CONTACTS UNTIL CLEARED TO DO SO BY YOUR CURTAIN FITTER. You MUST follow up with your aquarium specialist MARY. IF you are prescribed home medications and/or you are taking over the counter medications at home - it is very important you continue to do so as prescribed / directed unless told otherwise. Follow up with your primary care provider. Return to the emergency department immediately if your symptoms worsen or if you develop any numbness, tingling, dizziness, shortness of breath, difficulty breathing, chest pain, blurry vision, loss of vision, nausea, vomiting, abdominal pain, fever, chills, back pain, or any other complaints. Please see the information below about our Patient Portal. If you are not yet enrolled in the [facility] Patient Portal, you will receive an enrollment email invitation following your visit to any [facility] [place] care setting. You may also self-enroll in the Patient Portal by visiting our website: [email or web address] The following information is required to access the Patient Portal: - Your [facility] [place] Medical Record Number - Your personal home email address (must match what is in your electronic medical record, Registration staff can assist with this) - Name - Date of Capabilities of the Patient Portal: - Message some providers - View upcoming appointments - Access your health summary, medical history, and visit history - View current conditions and allergies - View procedure and lab results - View your medications, including guidelines, side effects, and precautions - Complete pre-appointment questionnaires requested by your provider - Ready summary reports of your office visits and procedures To access the Patient Portal Mobile [employer], follow these directions: - Search [employer] in the [employer] Store or [facility] Store - Download the [employer] - Search for [facility] - Enter your login/password Prescriptions: New ciprofloxacin HCl 0.3 % drops 2 drp ophthalmic-Right QD-QID 5 Days Qty: 5 0RF Rx Instructions: administer while awake No Action liothyronine 5 mcg tablet 1 tab PO DAILY levothyroxine 75 mcg tablet 1 tab PO DAILY linezolid 600 mg tablet 1 tab PO DAILY Estring 2 mg (7.5 mcg /24 hour) ring 1 ring vaginal [id number] Dupixent Syringe 300 mg/2 mL syringe subcut Referrals: Sammie Ramos MD [Primary Care Provider, Family Practice] Print Language: Latvian
[2024-12-20] MEDS: Fluorescein Sodium STRIP 1 STRIP EYE-RIGHT (09:21)
[2024-12-20] MEDS: Tetracaine HCl/PF 0.5% Oph Sol 4 ML DROPS 1 DROP EYE-RIGHT (09:21)
[2024-12-20 09:53] VITALS: BP 127/78; PULSE 76; RESP 18; TEMP 36.6; O2SAT 98
[2024-12-20 09:59] VITALS: BP 128/74; PULSE 59; RESP 14; TEMP 36.4; O2SAT 99
== END 2024-12-20 09:53 | disposition home or self-care (01) ==
PROVIDERS: Emergency Provider Emergency Medicine; PCP Family Medicine
DX: S05.01XA Injury of conjunctiva and corneal abrasion without foreign body, right eye, initial encounter (principal); X58.XXXA Exposure to other specified factors, initial encounter; Y93.9 Activity, unspecified; Y92.9 Unspecified place or not applicable; Y99.9 Unspecified external cause status; H57.11 Ocular pain, right eye
CPT/HCPCS: 99283